=== PATIENT | male | born 1990 | race Hispanic/Latino ===

== ENCOUNTER 2017-03-03 01:37 | Emergency (ER) | payer OTHER ==
[2017-03-03] MEDS ORDERED: HYDROmorphone 0.5 mg/0.5 ml ISec ONE (02:24)
--- NOTE | 2017-03-03 14:26 | RAD ---
PROCEDURE: Radiographs of the Right Shoulder HISTORY: DISLOCATION COMPARISON: 10/03/2015, 11/08/2015. FINDINGS: BONES: No acute fracture. JOINTS: Subluxed humeral head relative to the glenoid. SOFT TISSUES: Normal. OTHER FINDINGS: None. IMPRESSION: Subluxation of the humeral head relative to the glenoid.
--- NOTE | 2017-03-03 14:33 | RAD ---
PROCEDURE: Radiographs of the Right Shoulder HISTORY: DISLOCATION COMPARISON: March 03, 2017. Time of the most recent examination: 02:38. FINDINGS: BONES: Normal. No fracture. JOINTS: Persistent subluxation right humeral head relative to the glenoid. SOFT TISSUES: Normal. OTHER FINDINGS: None. IMPRESSION: No significant interval change compared to the prior examination(s).
== END 2017-03-03 04:38 | disposition home or self-care (01) ==
LOC: H.EDDOWN 01:37
DX: S43.004A Unspecified dislocation of right shoulder joint, initial encounter (principal)
CPT/HCPCS: 23650; 73030; 99283; J1170